=== PATIENT | male | born 1970 | race Two or more races ===

== ENCOUNTER 2021-06-17 10:30 | Emergency (ER) | payer SELFPAY ==
[~2021-06-17] VITALS: Ht 170.2 cm; Wt 72.1 kg
--- NOTE | 2021-06-17 10:41 | NUR ---
[id number] FR[employer] WORK C/O LOWER BACK PAIN R/T LLE WHILE WORKING ON PAINTING A WALL. THE PATIENT RATES LOWER BACK PAIN 10/10. RESPIRATION REGULAR AND UNLABORED. WILL CONTINUE TO MONITOR THE PATIENT.
[2021-06-17] MEDS ORDERED: HYDR-4275 PO (10:42)
[2021-06-17] MEDS ORDERED: IBUP-1955 PO (10:42)
[2021-06-17] MEDS ORDERED: KETOROLAC TROMETHAMINE INJ 30 MG/ML VIAL ONE (10:46)
[2021-06-17] MEDS ORDERED: KETOROLAC TROMETHAMINE INJ 60 MG/2 ML VIAL IM ONE (11:00)
--- NOTE | 2021-06-17 11:50 | NUR ---
Patient discharged to home in stable condition. Written and verbal after care instructions given. Patient verbalizes understanding of instruction.
[2021-06-17 11:51] VITALS: BP 136/75
== END 2021-06-17 11:53 | disposition home or self-care (01) ==
LOC: ER 10:36
DX: M54.50 Low back pain, unspecified (principal); I10 Essential (primary) hypertension; E11.9 Type 2 diabetes mellitus without complications
CPT/HCPCS: 96372; 99283; J1885